=== PATIENT | female | born 1990 | race Caucasian/White ===

== ENCOUNTER → 2016-03-05 | Outpatient (CLI) | payer OTHER ==
[~2016-03-05] MED LIST: ALLERGY10 M1 PO; BACTRIM 400 MG-1 TAB PO; CLARITIN 10MG T10 MG PO; FERROUS SULFAT325 M2 PO; KEFLEX250 M1 PO; PRENATAL PLUS1 TA1 PO
--- NOTE | 2016-03-05 15:01 | RADIOLOGY REPORT PS360 ---
US TRANSVAGINAL PREG HISTORY: Early gestation evaluation FOR DATES COMPARISON: None FINDINGS: An intrauterine gestational sac is present with a pole with a crown-rump length of 3.9cm correlating to gestational age of 10 weeks 6 days. heart tones are present with an FHR of 144 bpm's. movement noted. Yolk sac is noted. Adnexa: Unremarkable. IMPRESSION: Live IUP at 10 weeks 6 days.
== END ==
LOC: RAD 13:29
DX: O26.841 Uterine size-date discrepancy, first trimester (principal)

== ENCOUNTER 2016-11-11 17:37 | Emergency (ER) | payer OTHER ==
[~2016-11-11] VITALS: Ht 167.6 cm; Wt 81.6 kg
[~2016-11-11 17:37] MED LIST changes: +PERCOCET 5/3251 EACH PO
--- NOTE | 2016-11-11 18:12 | Urgent Treatment Center Report ---
History of Present Issue Date/Time Seen by Provider 11/11/16 0821 Visit Reason Pt arrived:Walked Presenting Problem:PT HAS STREP SYMPTOMS Location if Accident: Onset of symptoms date/time:/ or onset unknown for:MEDICAL HX UNKNOWN Have you (or family members/close friends) recently traveled outside the [place]? N If Yes, where/when: Have you had exposure to infectious disease within the past month? TB? Other? Specify: Patient state that she began having sorethroat, sinus pain and pressure about a week ago States that it has contined to get worse and she has a 7week old baby and she was worried that she may have strep and pass it on to the baby so she came in to get checked ALLERGIES Coded Allergies: hydrocodone (09/17/16) Home Medications Active Scripts Oxycodone 5MG/[id number] (Oxycodone-Acetaminophen 5-325) 1 TAB PO Q4HP PRN MODERATE TO SEVERE PAIN #30 TAB Prov: 09/20/16 Reported Medications Loratadine (Claritin 10MG) 10 MG PO DAILY MULTIVIT-MIN W/FE-FA ( Multivitamin Tablet) 1 TAB PO DAILY Ferrous Sulfate (Ferrous Sulfate 325MG) 325 MG PO BID History Medical History General CAD? No Angina: No [place]: No Hypertension? No Hyperlipidemia? No CHF? No DVT? No PE? No COPD? No Asthma? No Anemia? No GERD? No Gastric ulcers? No GI Bleed? No Hernia? No Thyroid Problems? No Hypothyroidism? No CVA? No Seizures? No Diabetes? No Renal Insuffiency? No UTI? No Stones? No BPH? No GB Disease: No Nephritic Syndrome? No Asplenia? No Hepatitis? No Sickle Cell Disease? No Arthritis? No Migraines? No Cataracts? No Glaucoma? No MRSA? No HIV? No TB? No Anxiety? No Depression? No Cancer? No Immunization HX DT/Tetanus 5-10 YRS Flu THISFLUSEA Pneumonia Refuses Surgical Hx Previous Surgery?Y LT KNEE ARTHROSCOPY TONSILLECTOMY WISDOM TEETH C- SECTION HYMANAL RING REVISION Family History Family HX Diabetes No CAD Yes Hypertension Yes Hyperlipidemia Yes Cancer Yes TB No Social History Smoking Hx Smoker: Never Smoker Tobacco: No Alcohol Alcohol: No Review of Systems All Other Systems Reviewed and Negative ENT nose congestion, throat pain, throat swelling. Physical Exam Vital Signs Vital Signs Date Time Temp Pulse Resp B/P Pulse O2 O2 Flow FiO2 Ox Delivery Rate 11/11 1739 98.0 86 18 142/86 98 General Appearance normal appearance, WD/WN, no apparent distress Ear, Nose, Throat sinus pain/drainage, nasal congestion, tonsillar swelling, Throat red, irritated, nasal congestion, drainage clear Respiratory Status Yes: trachea midline, chest symmetrical, non tender chest. No: respiratory distress. 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 No Results/Orders Laboratory Tests 11/11/16 1740: Group A Strep Screen NOT DETECTED Orders Procedure Date/time Status [facility] STREP SCREEN 11/11 1743 Complete Departure Departure Time of Disposition 1808 Disposition DC Home or Self Care(routine) Clinical Impression Primary Impression: Viral illness Condition STABLE Referrals Terrance BARBER,Geronimo (Family) Patient Instructions DI for Viral Pharyngitis, Sore Throat Additional Instructions * Monitor Temp. Tylenol and/or Ibuprofen as needed. ER if fever is no less than 101 despite alternating Tylenol and Ibuprofen * Encourage fluids, water, Gatorade, powerade, pedialyte if /toddler/or child * Warm salt water gargles for throat irritation *Warm fluids *Sore throat lozenges *Sleep elevated *humidifier or vaporizer Follow up IMMEDIATELY for new or worsening of symptoms OR no noticeable improvement over the next 48-72 hours. 911 immediately for any life threatening symptoms such as chest pain or difficulty breathing Discharge Counseling Counseled pt/family regarding diagnosis, test results, home care, follow up needs at 1811
--- NOTE | 2016-11-11 18:12 | Urgent Treatment Center Report ---
History of Present Issue Date/Time Seen by Provider 11/11/16 4469 Visit Reason Pt arrived:Walked Presenting Problem:PT HAS STREP SYMPTOMS Location if Accident: Onset of symptoms date/time:/ or onset unknown for:MEDICAL HX UNKNOWN Have you (or family members/close friends) recently traveled outside the [place]? N If Yes, where/when: Have you had exposure to infectious disease within the past month? TB? Other? Specify: Patient state that she began having sorethroat, sinus pain and pressure about a week ago States that it has contined to get worse and she has a 7week old baby and she was worried that she may have strep and pass it on to the baby so she came in to get checked ALLERGIES Coded Allergies: hydrocodone (09/17/16) Home Medications Active Scripts Oxycodone 5MG/[id number] (Oxycodone-Acetaminophen 5-325) 1 TAB PO Q4HP PRN MODERATE TO SEVERE PAIN #30 TAB Prov: 09/20/16 Reported Medications Loratadine (Claritin 10MG) 10 MG PO DAILY MULTIVIT-MIN W/FE-FA ( Multivitamin Tablet) 1 TAB PO DAILY Ferrous Sulfate (Ferrous Sulfate 325MG) 325 MG PO BID History Medical History General CAD? No Angina: No [place]: No Hypertension? No Hyperlipidemia? No CHF? No DVT? No PE? No COPD? No Asthma? No Anemia? No GERD? No Gastric ulcers? No GI Bleed? No Hernia? No Thyroid Problems? No Hypothyroidism? No CVA? No Seizures? No Diabetes? No Renal Insuffiency? No UTI? No Stones? No BPH? No GB Disease: No Nephritic Syndrome? No Asplenia? No Hepatitis? No Sickle Cell Disease? No Arthritis? No Migraines? No Cataracts? No Glaucoma? No MRSA? No HIV? No TB? No Anxiety? No Depression? No Cancer? No Immunization HX DT/Tetanus 5-10 YRS Flu THISFLUSEA Pneumonia Refuses Surgical Hx Previous Surgery?Y LT KNEE ARTHROSCOPY TONSILLECTOMY WISDOM TEETH C- SECTION HYMANAL RING REVISION Family History Family HX Diabetes No CAD Yes Hypertension Yes Hyperlipidemia Yes Cancer Yes TB No Social History Smoking Hx Smoker: Never Smoker Tobacco: No Alcohol Alcohol: No Review of Systems All Other Systems Reviewed and Negative ENT nose congestion, throat pain, throat swelling. Physical Exam Vital Signs Vital Signs Date Time Temp Pulse Resp B/P Pulse O2 O2 Flow FiO2 Ox Delivery Rate 11/11 1739 98.0 86 18 142/86 98 General Appearance normal appearance, WD/WN, no apparent distress Ear, Nose, Throat sinus pain/drainage, nasal congestion, tonsillar swelling, Throat red, irritated, nasal congestion, drainage clear Respiratory Status Yes: trachea midline, chest symmetrical, non tender chest. No: respiratory distress. 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 No Results/Orders Laboratory Tests 11/11/16 1740: Group A Strep Screen NOT DETECTED Orders Procedure Date/time Status [facility] STREP SCREEN 11/11 1743 Complete Departure Departure Time of Disposition 1808 Disposition DC Home or Self Care(routine) Clinical Impression Primary Impression: Viral illness Condition STABLE Referrals Terrance BARBER,Geronimo (Family) Patient Instructions DI for Viral Pharyngitis, Sore Throat Additional Instructions * Monitor Temp. Tylenol and/or Ibuprofen as needed. ER if fever is no less than 101 despite alternating Tylenol and Ibuprofen * Encourage fluids, water, Gatorade, powerade, pedialyte if /toddler/or child * Warm salt water gargles for throat irritation *Warm fluids *Sore throat lozenges *Sleep elevated *humidifier or vaporizer Follow up IMMEDIATELY for new or worsening of symptoms OR no noticeable improvement over the next 48-72 hours. 911 immediately for any life threatening symptoms such as chest pain or difficulty breathing Discharge Counseling Counseled pt/family regarding diagnosis, test results, home care, follow up needs at 1811
[2016-11-11 18:20] VITALS: BP 142/86
== END 2016-11-11 18:20 | disposition home or self-care (01) ==
LOC: UTC 17:37
DX: O86.89 Other specified puerperal infections (principal); B97.89 Other viral agents as the cause of diseases classified elsewhere